=== PATIENT | male | born 1990 | race Caucasian/White ===

== ENCOUNTER 2017-06-11 01:49 | Emergency (ER) | payer OTHER ==
[2017-06-11] MEDS ORDERED: Take Home: Amoxicillin/Clavulanate K 875-125 MG Tab, 2 Tab Pack PO ONE ×2 (02:16→02:24)
[2017-06-11] MEDS ORDERED: Take Home: Acetaminophen/HYDROcodone 325-10 MG, 5 Tab Pack PO ONE (02:16)
[2017-06-11] MEDS ORDERED: Ketorolac 60 MG/2 ML SDV IM ONE (02:18)
[2017-06-11 02:56] VITALS: BP 139/92
--- NOTE | 2017-06-12 08:12 | ER ---
Date of Service: 06/11/2017 SUBJECTIVE: Abelino presents to the emergency room with complaints of dental pain. The patient has his wisdom teeth and is scheduled to have them evaluated for removal at [facility] on Monday. He states that he has been experiencing a significant amount of discomfort in his left lower wisdom tooth since last Monday. He states that he has noticed some discomfort in the lateral aspect of the left side of his neck. He states that he is not experiencing any fever or chills. No difficulties with swallowing or managing his secretions. He denies any headache, chest pain, or shortness of breath. PAST MEDICAL HISTORY: None. MEDICATIONS: None. ALLERGIES: To Ceclor. REVIEW OF SYSTEMS: Please see history of present illness. He denies any fever, chills, chest pain, shortness of breath, difficulty swallowing, or managing his secretions. PHYSICAL EXAMINATION: GENERAL: This is a 27-year-old male patient in no acute distress. VITAL SIGNS: Blood pressure is 147/103, pulse rate 61, temperature is 36.9, respiratory rate 16, O2 saturation is 98%. SKIN: Warm, pink, and dry. HEENT: Head is normocephalic, atraumatic. Eyes, PERRLA. Extraocular movements are intact. Ears, TMs are clear. Mouth, oral mucosa is moist. He does have evidence of a severely decayed left lower premolar. He does have some fullness to the anterior cervical lymph nodes on the left. HEART: Regular rate and rhythm. LUNGS: Clear to auscultation. ABDOMEN: Soft, nontender. There is no hepatosplenomegaly or masses noted. EMERGENCY ROOM COURSE: The patient was given injection of Toradol 60 mg IM. The patient remained stable in my care in the emergency room. ASSESSMENT: Dental caries to left lower wisdom tooth. PLAN: The patient will be discharged. The patient was started on Augmentin 875 mg 1 twice daily for 10 days. [place] 10/325 with instructions to take 1-2 tablets every 4-6 hours as needed for pain. He can also start out taking half a tablet if he feels that a full tablet is too strong. In addition, he should take ibuprofen 800 mg every 8 hours. He should start that in approximately 6 hours since he is getting a shot of Toradol. I did advise him that it is difficult to get in to an oral surgeon in a timely fashion in this area. I did advise him that if they were having a difficult time getting him in to see an oral surgeon to undergo removal of his wisdom teeth that he may find it beneficial to contact [facility] in [place] as the dentist there will do wisdom tooth removal under local anesthetic. Did get him the information regarding this. Continue to drink plenty of fluids. All questions were answered. To note, the patient's blood pressure was rechecked and was found to be 139/92. Certainly, this may be a pain response, but he was advised to follow up in the clinic for recheck of his blood pressure. MWK: 06/11/2017 02:40:47 MODL: 06/11/2017 03:51:01 /[id number]
== END 2017-06-11 02:48 | disposition home or self-care (01) ==
LOC: VM.ED 01:49
DX: K02.9 Dental caries, unspecified (principal)
CPT/HCPCS: 96372; 99282; A9270; J1885

== ENCOUNTER 2021-06-18 11:59 | Emergency (ER) | payer OTHER ==
[2021-06-18 12:14] VITALS: BP 155/90; PULSE 54
[2021-06-18] MEDS ORDERED: Diphtheria,Pertussis(Acell),Tetanus Vaccine 0.5 ML Syringe IM ONE (12:19)
--- NOTE | 2021-06-19 07:15 | EDM.PDOC ---
ED HPI GENERAL MEDICAL PROBLEM - General Chief Complaint: Bite:Animal, Insect Stated Complaint: DOG BITE Time Seen by Provider: 06/18/21 12:13 Source of Information: Reports: Patient History Limitations: Reports: No Limitations - History of Present Illness INITIAL COMMENTS - FREE TEXT/NARRATIVE: Pt. presents to ER with complaints to dog bite to L forearm. Law enforcement was contacted and is in the process of obtaining rabies status. Pt. denies any injury elsewhere. Tetanus is not up to date. Onset: Today Onset Date: 06/19/21 Location: Reports: Upper Extremity, Left Left Arm Pain Score (Numeric/FACES): 4 - Related Data Allergies Allergy/AdvReac Type Severity Reaction Status Date / Time cefaclor [From Ceclor] Allergy Cannot Verified 06/11/17 01:50 Remember Home Meds: Home Meds . [No Known Home Meds] 06/11/17 [History] Past Medical History - Past Surgical History Musculoskeletal Surgical History: Reports: Other (See Below) Other Musculoskeletal Surgeries/Procedures:: Knee surgery about 5 years ago Social & Family History - Tobacco Use Tobacco Use Status *Q: Never Tobacco User - Recreational Drug Use Recreational Drug Use: No ED ROS GENERAL - Review of Systems Review Of Systems: Comprehensive ROS is negative, except as noted in HPI. ED EXAM, ANIMAL BITE - Physical Exam Exam: See Below Exam Limited By: No Limitations General Appearance: Alert, WD/WN, No Apparent Distress Extremities: Normal Range of Motion, Arm Pain, Other (abrasions/contusions consistent with dog bite to L forearm.) Neurological: Alert, Oriented, CN II-XII Intact, Normal Cognition, Normal Gait, Normal Reflexes, No Motor/Sensory Deficits Course - Vital Signs Last Recorded V/S: Last Vital Signs Temp 36.7 C 06/18/21 12:13 Pulse 54 L 06/18/21 12:13 Resp 16 06/18/21 12:13 BP 155/90 H 06/18/21 12:13 Pulse Ox 100 06/18/21 12:13 - Orders/Labs/Meds Meds: Medications Discontinued Medications Generic Name Dose Route Start Last Admin Trade Name Freq PRN Reason Stop Dose Admin Diphtheria/Tetanus/Acell Pertussis 0.5 ml 06/18/21 12:19 06/18/21 12:29 Diphtheria,Pertussis(Acell),Tetanus Vaccine 0.5 Ml Syringe IM 06/18/21 12:20 0.5 ml .ONCE ONE Administration Departure - Departure Time of Disposition: 13:00 Disposition: Home, Self-Care 01 Clinical Impression: Dog bite - Discharge Information Instructions: Animal Bite, Adult, [id number], Amoxicillin; Clavulanic Acid Tablets Referrals: PCP,None [Primary Care Provider] - Forms: ED Department Discharge Additional Instructions: [facility] will let us know about the rabies status up the dog. Augmentin 875mg 1 tab twice daily for 7 days Keep bite open to air as much as possible. Ice forearm for 10-15 min every hour for pain Ibuprofen 200mg 3 tabs daily for 6 days. - Problem List Review Problem List Initiated/Reviewed/Updated: Yes - Assessment/Plan Plan: [facility] will let us know about the rabies status up the dog. Augmentin 875mg 1 tab twice daily for 7 days Keep bite open to air as much as possible. Ice forearm for 10-15 min every hour for pain Ibuprofen 200mg 3 tabs daily for 6 days.
== END 2021-06-18 12:45 | disposition home or self-care (01) ==
LOC: VM.ED 11:59
DX: S51.852A Open bite of left forearm, initial encounter (principal); Z23 Encounter for immunization; Z88.1 Allergy status to other antibiotic agents; W54.0XXA Bitten by dog, initial encounter; Z88.8 Allergy status to other drugs, medicaments and biological substances
CPT/HCPCS: 90471; 90715; 99283

== ENCOUNTER 2021-06-23 10:46 | Emergency (ER) | payer OTHER ==
--- NOTE | 2021-06-23 11:19 | EDM.PDOC ---
ED HPI GENERAL MEDICAL PROBLEM - General Chief Complaint: Skin Complaint Stated Complaint: INFECTED DOG BITE Time Seen by Provider: 06/23/21 11:05 Source of Information: Reports: Patient History Limitations: Reports: No Limitations - History of Present Illness INITIAL COMMENTS - FREE TEXT/NARRATIVE: Abelino is a 31 year old male who presents to ER with concerns of a possible infe ction to his left forearm. Was at a customer's house on Monday and was bit by a pit bull. Was seen in the ER that day and was advised to keep clean and dry. Was started on Amoxicillin. Last night, did bump the area and felt increased pain. Had a scant amount of drainage when that occurred. Noting a small amount of redness to the puncture wound and is worrying about infection. No fever. H as not noted any increased warmth to the area. Has mild discomfort. Onset: Gradual Duration: Day(s): Location: Reports: Upper Extremity, Left Quality: Reports: Ache Severity: Mild Associated Symptoms: Denies: Fever/Chills - Related Data Allergies Allergy/AdvReac Type Severity Reaction Status Date / Time cefaclor [From Ceclor] Allergy Cannot Verified 06/11/17 01:50 Remember Home Meds: Home Meds . [No Known Home Meds] 06/11/17 [History] Past Medical History - Past Surgical History Musculoskeletal Surgical History: Reports: Other (See Below) Other Musculoskeletal Surgeries/Procedures:: Knee surgery about 5 years ago Social & Family History - Tobacco Use Tobacco Use Status *Q: Current Every Day Tobacco User Tobacco Use Within Last Twelve Months: Snuff/Dip ED ROS GENERAL - Review of Systems Review Of Systems: See Below Constitutional: Denies: Fever, Chills, Malaise HEENT: Reports: No Symptoms Respiratory: Reports: No Symptoms Cardiovascular: Reports: No Symptoms Endocrine: Reports: No Symptoms GI/Abdominal: Reports: No Symptoms Skin: Reports: Wound ED EXAM, SKIN/RASH Exam: See Below Exam Limited By: No Limitations General Appearance: Alert, WD/WN, No Apparent Distress Extremities: Other (has small puncture wound to left forearm, scabbed. 1 cm area of redness noted surrounding this. No drainage. No warmth. Other small scratches are superficial and healing well.). No: Increased Warmth Neurological: Alert, Oriented Skin: Warm, Dry Departure - Departure Time of Disposition: 11:19 Disposition: Home, Self-Care 01 Condition: Good Clinical Impression: Wound infection - Discharge Information *PRESCRIPTION DRUG MONITORING PROGRAM REVIEWED*: No *COPY OF PRESCRIPTION DRUG MONITORING REPORT IN PATIENT ROBIN: No Instructions: Wound Infection Forms: ED Department Discharge Additional Instructions: 1. Keep wound clean and dry 2. Soak with warm wet cloth periodically through the day 3. Monitor area of redness for increased size, drainage or warmth 4. Complete course of Amoxicillin 5. Tylenol for discomfort 6. Follow up with Primary Care provider for concerns.
[2021-06-23 11:22] VITALS: BP 147/83; PULSE 62
== END 2021-06-23 11:30 | disposition home or self-care (01) ==
LOC: VM.ED 10:46
DX: L08.9 Local infection of the skin and subcutaneous tissue, unspecified (principal); S51.832A Puncture wound without foreign body of left forearm, initial encounter; Z72.0 Tobacco use; Z88.1 Allergy status to other antibiotic agents; W54.0XXA Bitten by dog, initial encounter
CPT/HCPCS: 99282; 99283

== ENCOUNTER 2024-09-14 14:39 | Emergency (ER) | payer OTHER ==
[2024-09-14 15:01] VITALS: BP 142/101; PULSE 85
[2024-09-14] MEDS ORDERED: Take Home: Amoxicillin 875 MG Tab, 2 Tab Pack PO ONE (15:35)
[2024-09-14] MEDS: Amoxicillin 875 MG Tab PO ONE ×2 (15:40→15:45)
[2024-09-14] MEDS ORDERED: Amoxicillin 875 MG Tab PO SCH (21:00)
== END 2024-09-14 15:48 | disposition home or self-care (01) ==
LOC: VM.ED 14:39
DX: J02.0 Streptococcal pharyngitis (principal); Z88.1 Allergy status to other antibiotic agents; Z79.2 Long term (current) use of antibiotics
CPT/HCPCS: 87651-QW; 99283; A9270-GY